=== PATIENT | male | born 2005 | race Caucasian/White ===

== ENCOUNTER 2023-08-29 16:04 | Outpatient (CLI) | payer OTHER, SELFPAY | END 2023-08-29 16:05 | disposition home or self-care (01) | LOC: NFLDUCREF 16:05 | PROVIDERS: PCP Nurse Practitioner Family; Visit Provider Nurse Practitioner Family | DX: N34.2 Other urethritis (principal) | CPT/HCPCS: 87086 ==

== ENCOUNTER 2024-08-19 11:00 | Outpatient (CLI) | payer BC, SELFPAY | END 2024-08-19 11:01 | disposition home or self-care (01) | PROVIDERS: Visit Provider Family Medicine | DX: R30.0 Dysuria (principal); Z11.3 Encounter for screening for infections with a predominantly sexual mode of transmission | CPT/HCPCS: 87086; 87491; 87591 ==

== ENCOUNTER 2024-08-24 13:49 | Outpatient (CLI) | payer BC, SELFPAY | END 2024-08-24 13:50 | disposition home or self-care (01) | LOC: NFLDREF 08-26 22:25 | PROVIDERS: PCP Family Medicine; Referring Provider Family Medicine; Visit Provider Family Medicine | DX: R30.0 Dysuria (principal) | CPT/HCPCS: 87086 ==

== ENCOUNTER 2024-08-31 13:51 | Outpatient (CLI) | payer BC, SELFPAY | END 2024-08-31 13:52 | disposition home or self-care (01) | LOC: NFLDREF 09-04 03:00 | PROVIDERS: PCP Family Medicine; Referring Provider Family Medicine; Visit Provider Family Medicine | DX: R30.0 Dysuria (principal); L29.3 Anogenital pruritus, unspecified | CPT/HCPCS: 87109 ==

== ENCOUNTER 2025-01-17 08:55 | Outpatient (CLI) | payer BC, SELFPAY | END 2025-01-17 08:56 | disposition home or self-care (01) | PROVIDERS: PCP Family Medicine; Visit Provider Internal Medicine | DX: R11.0 Nausea (principal); R53.81 Other malaise; R53.83 Other fatigue | CPT/HCPCS: 80053; 82728; 86140 ==